=== PATIENT | female | born 1960 ===

== ENCOUNTER 2018-10-02 14:13 | Emergency (ER) | payer BC, OTHER ==
[2018-10-02 14:13] VITALS: BMI 23.1
[2018-10-02 14:21] VITALS: RESP 18; TEMP 98.1
--- NOTE | 2018-10-02 14:34 | ED PDOC ---
Arrival/HPI - General Historian: Patient - History of Present Illness Narrative History of Present Illness (Text): 10/02/18 14:30 57 y/o female, no significant pmh, previous smoker, nkda, c/o lt. sided rib pain x 1 month. Pt. stated that she fall on the lt. sided rib about 1 month ago, on and off pain, had xray show no fracture, seeing and following up by pmd Dr. Lyles. Pt. stated that the pain is still persist, not improved, no chest pain or shortness of breath, no numbness or tingling, no palpitation, no night sweat, no dizziness, no change in vision, no pleuritic pain, no urinary symptoms, no other medical or psychological complaints. <Fredrick Rojas - Last Filed: 10/02/18 19:31> <Annalisa Shah - Last Filed: 10/03/18 18:23> - General Chief Complaint: Rib Injury Past Medical History - Provider Review Nursing Documentation Reviewed: Yes - Infectious Disease Hx of Infectious Diseases: None - Tetanus Immunization Tetanus Immunization: Unknown - Cardiac Hx Pacemaker: No - Neurological Hx Paralysis: No - Hematological/Oncological Hx Blood Transfusions: No Hx Blood Transfusion Reaction: No - Musculoskeletal/Rheumatological Hx Musculoskeletal Disorders: No - Gastrointestinal Hx Gastroesophageal Reflux: Yes - Psychiatric Hx Emotional Abuse: No Hx Physical Abuse: No Hx Substance Use: No - Surgical History Other/Comment: Kidney stne removal - Anesthesia Hx Anesthesia Reactions: No Hx Malignant Hyperthermia: No - Suicidal Assessment Feels Threatened In Home Enviroment: No <Fredrick Rojas - Last Filed: 10/02/18 19:31> Family/Social History - Physician Review Nursing Documentation Reviewed: Yes Family/Social History: Unknown Family HX Smoking Status: Former Smoker Hx Alcohol Use: Yes (SOCIAL) Frequency of alcohol use: Socially Hx Substance Use: No <Fredrick Rojas - Last Filed: 10/02/18 19:31> Allergies/Home Meds <Fredrick Rojas - Last Filed: 10/02/18 19:31> <Annalisa Shah - Last Filed: 10/03/18 18:23> Allergies/Adverse Reactions: Allergies No Known Allergies Allergy (Verified 10/02/18 14:21) Home Medications: Home Meds Medication Instructions Recorded Confirmed Naproxen [Naprosyn] 500 mg PO BID PRN 10/02/18 10/02/18 Ranitidine HCl [Zantac] 150 mg PO BID 10/02/18 10/02/18 Review of Systems - Review of Systems Constitutional: absent: Fatigue, Fevers Eyes: absent: Vision Changes ENT: absent: Hearing Changes Respiratory: absent: SOB, Cough Cardiovascular: absent: Chest Pain Gastrointestinal: absent: Abdominal Pain, Diarrhea, Nausea, Vomiting Genitourinary Female: absent: Dysuria, Frequency Musculoskeletal: Arthralgias, Myalgias. absent: Back Pain, Neck Pain, Joint Swelling Skin: absent: Rash, Pruritis Neurological: absent: Headache, Dizziness Hemo/Lymphatic: absent: Adenopathy, Easy Bleeding Psychiatric: absent: Anxiety, Depression <Fredrick Rojas Q - Last Filed: 10/02/18 19:31> Physical Exam Vital Signs Reviewed: Yes Vital Signs Temp Pulse Resp BP Pulse Ox 10/02/18 14:17 98.1 F 81 18 152/70 H 97 Temperature: Afebrile Blood Pressure: Hypertensive Pulse: Regular Respiratory Rate: Normal Appearance: Positive for: Well-Appearing, Non-Toxic, Comfortable Pain Distress: Mild Mental Status: Positive for: Alert and Oriented X 3 - Systems Exam Head: Present: Atraumatic, Normocephalic Pupils: Present: PERRL Extroacular Muscles: Present: EOMI Conjunctiva: Present: Normal Mouth: Present: Moist Mucous Membranes Neck: Present: Normal Range of Motion Respiratory/Chest: Present: Clear to Auscultation, Good Air Exchange, Tender to Palpation (pain is 100% reproducible by palating the lt. lower anterior intercostal muscle region, no cva tenderness). No: Respiratory Distress, Accessory Muscle Use, Wheezes, Decreased Breath Sounds, Rales, Retracting, Rhonchi, Tachypneic Cardiovascular: Present: Regular Rate and Rhythm, Normal S1, S2. No: Murmurs Abdomen: No: Tenderness, Distention, Peritoneal Signs, Rebound, Guarding Back: Present: Normal Inspection Upper Extremity: Present: Normal Inspection, Normal ROM, NORMAL PULSES, Neurovascularly Intact, Capillary Refill < 2s. No: Cyanosis, Edema, Deformity Lower Extremity: Present: Normal Inspection, NORMAL PULSES, Normal ROM, Neurovascularly Intact, Capillary Refill < 2 s. No: Edema, CALF TENDERNESS, Tenderness, Swelling, Deformity Neurological: Present: GCS=15, CN II-XII Intact, Speech Normal, Motor Func Grossly Intact, Normal Cerebellar Funct, Gait Normal, Memory Normal Skin: Present: Warm, Dry, Normal Color. No: Rashes Psychiatric: Present: Alert, Oriented x 3, Normal Insight, Normal Concentration <Fredrick Rojas Juwan - Last Filed: 10/02/18 19:31> Vital Signs Temp Pulse Resp BP Pulse Ox 10/02/18 16:56 58 L 18 140/69 98 10/02/18 14:17 98.1 F 81 18 152/70 H 97 <Esther Shahsa - Last Filed: 10/03/18 18:23> Medical Decision Making ED Course and Treatment: 10/02/18 14:41 -Labs -ekg -lt. rib xray -abd sonogram -IV toradol -Observe and reassess 10/02/18 16:16 -Urine hcg is negative -EKG show NSR @ 64 BPM, no ST elevation or depression, no T wave inversion, normal OH/QRS/QT intervals. -Lt. Rib/chest xray: ER wet read: no gross fracture or dislocation -Abdominal sonogram Echogenic liver may be seen in setting of hepatic parenchymal disease or fatty infiltration. 3.2 cm right hepatic lobe cyst. Mild dilatation of the common bile duct. -Labs are non significant -Lipase within normal limit -Trop after 24 hours is negative -BNP is negative -UA show no UTI -All labs and radiology result discussed with the patient, advised to follow up. -Pt. feels well and improved with the toradol and medication given in the ER, advised to see orthopedic and pmd within 2 days for additional care. -Discharge home with lidoderm, continue your pain medication at home, follow up with your own pmd and orthopedic and safety net maker within2 days, return to the ER for any new or worsening signs or symptoms. - RAD Interpretation Radiology Orders: -Lt. Rib/chest xray -Abdominal sonogram HISTORY: LUQ pain x 1 month COMPARISON: None available. TECHNIQUE: Sonographic evaluation of the abdomen. FINDINGS: LIVER: Measures 14.8 cm in sagittal dimension. Echogenic liver may be seen in setting of hepatic parenchymal disease or fatty infiltration. 3.2 x 2.7 x 2.9 cm right hepatic lobe cyst. The main portal vein appears patent with normal directional flow. No intrahepatic bile duct dilatation. GALLBLADDER: No gallstones. No gallbladder wall thickening. Negative sonographic Pandey's si gn as assessed by the animal cop. COMMON BILE DUCT: Measures 7 mm. PANCREAS: Not well visualized. RIGHT KIDNEY: Measures 10.5 x 3.9 x 5.0 cm. No obstructing calculus or hydronephrosis identified. LEFT KIDNEY: Measures 11.6 x 4.3 x 5.7 cm. No obstructing calculus or hydronephrosis identified. SPLEEN: Measures approximately 11.9 cm. AORTA: Limited views appear unremarkable. IVC: Limited views appear unremarkable. OTHER FINDINGS: None. IMPRESSION: Echogenic liver may be seen in setting of hepatic parenchymal disease or fatty infiltration. 3.2 cm right hepatic lobe cyst. Mild dilatation of the common bile duct. Additional findings as above. Universal Grinder Operator: Radiologist <Fredrick Rojas Q - Last Filed: 10/02/18 19:31> - Lab Interpretations Lab Results: Troponin I < 0.01 ng/mL 10/02/18 15:14 NT-Pro-B Natriuret Pep 76.9 pg/mL (0-450) 10/02/18 15:14 Total Bilirubin 0.4 mg/dL (0.2-1.3) 10/02/18 15:14 AST 19 U/L (14-36) 10/02/18 15:14 ALT 28 U/L (7-56) 10/02/18 15:14 Alkaline Phosphatase 107 U/L (38-126) 10/02/18 15:14 Total Protein 6.8 g/dL (5.8-8.3) 10/02/18 15:14 Albumin 3.9 g/dL (3.0-4.8) 10/02/18 15:14 Globulin 2.9 gm/dL 10/02/18 15:14 Albumin/Globulin Ratio 1.4 (1.1-1.8) 10/02/18 15:14 Lipase 37 U/L (23-300) 10/02/18 15:14 Urine Color Yellow (YELLOW) 10/02/18 15:14 Urine Appearance Clear (CLEAR) 10/02/18 15:14 Urine pH 6.5 (4.7-8.0) 10/02/18 15:14 Ur Specific [place] <= 1.005 (1.005-1.035) 10/02/18 15:14 Urine Protein Negative mg/dL (<30 mg/dL) 10/02/18 15:14 Urine Glucose (UA) Negative mg/dL (NEGATIVE) 10/02/18 15:14 Urine Ketones Negative mg/dL (NEGATIVE) 10/02/18 15:14 Urine Blood Small (NEGATIVE) H 10/02/18 15:14 Urine Nitrate Negative (NEGATIVE) 10/02/18 15:14 Urine Bilirubin Negative (NEGATIVE) 10/02/18 15:14 Urine Urobilinogen 0.2 E.U./dL (<1 E.U./dL) 10/02/18 15:14 Ur Leukocyte Esterase Negative Karrie/uL (NEGATIVE) 10/02/18 15:14 Urine RBC 2 - 5 /hpf (0-2) H 10/02/18 15:14 Urine WBC 1 - 3 /hpf (0-6) 10/02/18 15:14 Ur Epithelial Cells 4 - 5 /hpf (0-5) 10/02/18 15:14 Urine Bacteria Few /hpf (NONE) 10/02/18 15:14 - RAD Interpretation Radiology Orders: 10/02/18 14:34 RIBS LEFT & PA CHEST [RAD] Stat 10/02/18 14:36 ABDOMEN COMPLETE [US] Stat - Medication Orders Current Medication Orders: Discontinued Medications Ketorolac Tromethamine (Toradol) 30 mg IVP STAT STA Stop: 10/02/18 14:36 Last Admin: 10/02/18 15:08 Dose: 30 mg LUCIA Pain Assessment Document 10/02/18 15:08 BB (Rec: 10/02/18 15:09 BB [id number]) Pain Reassessment Is this a pain reassessment? No Sleep Is patient sleeping during reassessment? No Presence of Pain Presence of Pain Yes Pain Scale Used Protocol: PSCALES Pain Scale Used Numeric Location Left, Right or Bilateral Left Pain Location Body Site Chest Description Description Constant Intensity of Pain at present 9 IVP Administration Document 10/02/18 15:08 BB (Rec: 10/02/18 15:09 BB [id number]) Charges for Administration # of IVP Administrations 1 Lidocaine (Lidoderm) 1 ea TD STAT STA Stop: 10/02/18 16:16 Last Admin: 10/02/18 16:53 Dose: 1 ea MAR Transdermal Patch Site Document 10/02/18 16:53 BB (Rec: 10/02/18 16:53 BB [id number]) Transdermal Patch Site Transdermal Patch Site Left Upper Chest <Annalisa Shah - Last Filed: 10/03/18 18:23> - PA / SUPERVISOR SHIPPING ROOM / Resident Statement / has reviewed & agrees with the documentation as recorded. <Fredrick Rojas - Last Filed: 10/02/18 19:31> Disposition/Present on Arrival - Present on Arrival Any Indicators Present on Arrival: No History of DVT/PE: No History of Uncontrolled Diabetes: No Urinary Catheter: No History of Decub. Ulcer: No History Surgical Site Infection Following: None - Disposition Have Diagnosis and Disposition been Completed?: Yes Disposition Time: 16:18 Patient Plan: Discharge <Fredrick Rojas - Last Filed: 10/02/18 19:31> <Annalisa Shah - Last Filed: 10/03/18 18:23> - Disposition Diagnosis: Fall, Rib pain, Abnormal chest x-ray Disposition: HOME/ ROUTINE Condition: IMPROVED Additional Instructions: -Discharge home with lidoderm, continue your pain medication at home, follow up with your own pmd and orthopedic and safety net maker within2 days, return to the ER for any new or worsening signs or symptoms. Prescriptions: Lidocaine 5% [Lidoderm] 1 patch TOP DAILY PRN #14 patch PRN Reason: Other Referrals: Angeles Lyles MD [Family Provider] - Follow up with primary Cachorro Boyle MD [Staff Provider] - Follow up with primary Karri Covington DO [Staff Provider] - Follow up with primary Cachorro Rosa MD [Staff Provider] - Follow up with primary Forms: [facility] (Vietnamese), WORK NOTE Addendum Addendum: 10/03/18 18:22 Spoke with patient and her regarding Left Rib Film updated read, as shown below. They both verbalized understanding and states they will followup with Dr. Lyles tomorrow. Ribs Left: FINDINGS: LEFT RIBS: No acute displaced fracture identified. LUNGS: 5 mm left upper lobe calcified granuloma. No focal consolidation. Please note that chest x-ray has limited sensitivity for the detection of pulmonary masses. PLEURA: No significant pleural effusion. No definite pneumothorax. CARDIOVASCULAR: Heart size appears within normal limits. Prominence of the mediastinum may be exaggerated by slight patient obliquity and tortuous aorta. Alternatives including adenopathy not excluded. No aortic atherosclerotic calcification present OTHER FINDINGS: Degenerative changes of the spine. IMPRESSION: 5 mm calcified granuloma within the left lung apex. Prominence of the mediastinum may be exaggerated by slight patient obliquity and tortuous aorta; alternatives including adenopathy not excluded. Study marked for PA review. No appreciable displaced left-sided rib fracture. <Annalisa Shah - Last Filed: 10/03/18 18:23>
[2018-10-02 15:35] LABS: PH,URINE 6.5 (4.7-8.0); URINE BILIRUBIN NEGATIVE (NEGATIVE); URINE BLOOD SMALL (NEGATIVE); URINE GLUCOSE (UA) NEGATIVE (NEGATIVE); URINE LEUKOCYTE ESTERASE NEGATIVE Leu/uL (NEGATIVE); URINE PROTEIN NEGATIVE mg/dL (<30 mg/dL); URINE UROBILINOGEN 0.2 E.U./dL (<1 E.U./dL)
[2018-10-02 15:36] LABS: ALB/GLOB RATIO 1.4 (1.1-1.8); ALBUMIN 3.9 g/dL (3.0-4.8); ALT/SGPT 28 U/L (7-56); AST/SGOT 19 U/L (14-36); BASO # 0.02 K/mm3 (0.0-2.0); BASO % 0.3 % (0.0-3.0); BLOOD UREA NITROGEN 13 mg/dL (7-21); CALCIUM 9.3 mg/dL (8.4-10.5); EOS # 0.1 (0.0-0.7); EOS % 1.5 % (1.5-5.0); GFR NON-AFRICAN AMERICAN > 60; HEMOGLOBIN 12.9 g/dL (12.0-16.0); LIPASE 37 U/L (23-300); LYMPH % 25.6 % (22.0-35.0); MEAN CORPUSCULAR HEMOGLOBIN 31.2 pg (25.0-35.0); MEAN CORPUSCULAR HGB CONC 33.9 g/dl (31.0-37.0); MEAN PLATELET VOLUME 10.7 fl (7.0-11.0); MONO # 0.5 (0.1-0.6); MONO % 6.8 % (1.0-6.0); RBC 4.14 10^6/uL (3.5-6.1); RED CELL DISTRIBUTION WIDTH 12.3 % (11.5-14.5); URINE APPEARANCE CLEAR (CLEAR); URINE COLOR YELLOW (YELLOW); WHITE BLOOD COUNT 7.9 10^3/uL (4.5-11.0)
[2018-10-02 15:48] LABS: B-TYPE NATRIURETIC PEPTIDE 76.9 pg/mL (0-450); TROPONIN I < 0.01 ng/mL
--- NOTE | 2018-10-02 16:06 | US ---
HISTORY: LUQ pain x 1 month COMPARISON: None available. TECHNIQUE: Sonographic evaluation of the abdomen. FINDINGS: LIVER: Measures 14.8 cm in sagittal dimension. Echogenic liver may be seen in setting of hepatic parenchymal disease or fatty infiltration. 3.2 x 2.7 x 2.9 cm right hepatic lobe cyst. The main portal vein appears patent with normal directional flow. No intrahepatic bile duct dilatation. GALLBLADDER: No gallstones. No gallbladder wall thickening. Negative sonographic Pandey's sign as assessed by the medical fee clerk. COMMON BILE DUCT: Measures 7 mm. PANCREAS: Not well visualized. RIGHT KIDNEY: Measures 10.5 x 3.9 x 5.0 cm. No obstructing calculus or hydronephrosis identified. LEFT KIDNEY: Measures 11.6 x 4.3 x 5.7 cm. No obstructing calculus or hydronephrosis identified. SPLEEN: Measures approximately 11.9 cm. AORTA: Limited views appear unremarkable. IVC: Limited views appear unremarkable. OTHER FINDINGS: None. IMPRESSION: Echogenic liver may be seen in setting of hepatic parenchymal disease or fatty infiltration. 3.2 cm right hepatic lobe cyst. Mild dilatation of the common bile duct. Additional findings as above.
--- NOTE | 2018-10-02 16:09 | RAD ---
Date of service: 10/02/2018 PROCEDURE: Radiographs of the Chest and Left Ribs. HISTORY: lt. sided rib pain x 1 month COMPARISON: None available. TECHNIQUE: Frontal radiograph of the chest and multiple oblique radiographs of the left ribs were obtained. 4 views obtained. FINDINGS: LEFT RIBS: No acute displaced fracture identified. LUNGS: 5 mm left upper lobe calcified granuloma. No focal consolidation. Please note that chest x-ray has limited sensitivity for the detection of pulmonary masses. PLEURA: No significant pleural effusion. No definite pneumothorax. CARDIOVASCULAR: Heart size appears within normal limits. Prominence of the mediastinum may be exaggerated by slight patient obliquity and tortuous aorta. Alternatives including adenopathy not excluded. No aortic atherosclerotic calcification present OTHER FINDINGS: Degenerative changes of the spine. IMPRESSION: 5 mm calcified granuloma within the left lung apex. Prominence of the mediastinum may be exaggerated by slight patient obliquity and tortuous aorta; alternatives including adenopathy not excluded. Study marked for PA review. No appreciable displaced left-sided rib fracture.
[2018-10-02] MEDS ORDERED: Lidocaine 5% Patch TD STA (16:15)
[2018-10-02 16:17] LABS: URINE BACTERIA FEW /hpf
[2018-10-02 16:57] VITALS: BP 140/69; PULSE 58; O2SAT 98
--- NOTE | 2018-10-02 20:16 | CARD ---
APPROVED REPORT Date of service: 10/02/2018 EKG Measurement Heart [id number] <Conclusion> Normal sinus rhythm Normal ECG
== END 2018-10-02 16:57 | disposition home or self-care (01) ==
LOC: ED 14:13
DX: R07.81 Pleurodynia (principal); R91.8 Other nonspecific abnormal finding of lung field; Z87.891 Personal history of nicotine dependence
CPT/HCPCS: 71101; 76700; 80053; 81001; 81025; 83690; 83735; 83880; 84484; 85025; 93005; 96374; 99283; J1885